=== PATIENT | male | born 1985 | race Caucasian/White ===

== ENCOUNTER 2018-11-28 16:50 | Emergency (ER) | payer OTHER ==
[~2018-11-28] VITALS: Ht 172.7 cm; Wt 74.8 kg
[2018-11-28 16:58] VITALS: BP 154/98
[2018-11-28] MEDS ORDERED: DILAUDID ONE (17:07)
[2018-11-28] MEDS ORDERED: ZOFRAN ONE (17:07)
--- NOTE | 2018-11-28 17:10 | NUR ---
UPDATE DR. DONOHUE AT BEDSIDE AND EXAM COMPLETE. PATIENT REMOVED FROM BACKBOARD.
[2018-11-28] MEDS ORDERED: DILAUDID IV STA (17:14)
[2018-11-28] MEDS ORDERED: ZOFRAN IV STA (17:14)
[2018-11-28 17:15] VITALS: BP 138/98
--- NOTE | 2018-11-28 17:30 | NUR ---
CT PATIENT TO CT VIA STRETCHER.
[2018-11-28 17:44] LABS: BASOPHIL # 0.1 10^3/uL (0.0-0.1); BASOPHIL % 0.6 % (0.0-0.2); EOSINOPHIL % 0.3 % (0.0-5.0); HEMOGLOBIN 16.6 g/dL (13.9-16.3); LYMPHOCYTES # 2.2 10^3/uL (1.0-4.8); LYMPHOCYTES % 18.5 % (24.0-44.0); MEAN CELL HGB 29.5 pg (26-34); MEAN CORP VOLUME 84.3 fL (78-100); MEAN PLATELET VOLUME 9.2 fL (7.8-11.0); MONOCYTES % 8.2 % (5.0-12.0); NEUTROPHIL # 8.5 10^3/uL (1.8-7.7); NEUTROPHILS % 72.2 % (41.0-85.0); RED CELL DISTRIBUTION WIDTH 12.9 % (11.5-14.5); WHITE BLOOD CELL 11.8 10^3/uL (4.5-11.0)
--- NOTE | 2018-11-28 17:54 | PCM.EKG ---
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
[2018-11-28 18:03] LABS: CALCIUM 9.2 mg/dL (8.4-10.5); CARBON DIOXIDE 20.5 mmol/L (20.0-32)
--- NOTE | 2018-11-28 18:13 | NUR ---
UPDATE DR. DONOHUE ON THE PHONE WITH [facility].
--- NOTE | 2018-11-28 18:14 | NUR ---
CT PATIENT RETURNED FROM CT VIA STRETCHER.
[2018-11-28 18:15] VITALS: BP 129/85
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
[2018-11-28 18:30] VITALS: BP 135/83
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
--- NOTE | 2018-11-28 18:40 | NUR ---
UPDATE CT RESULTS ARE BACK AND DR. DONOHUE STATES THAT THEY ARE NORMAL SO FAR AND TO HOLD TRANSFER AT THIS TIME. CALLED AND NOTIFIED [employer] TO HOLD ON TRANSFER.
--- NOTE | 2018-11-28 18:40 | NUR ---
C BRYAN WILL REMOVED BY DR. DONOHUE
[2018-11-28 18:45] VITALS: BP 136/95
[2018-11-28] MEDS ORDERED: ADACEL VIAL IM ONE ×2 (19:42→20:00)
== END 2018-11-28 20:15 | disposition home or self-care (01) ==
LOC: ER 16:50
DX: S01.01XA Laceration without foreign body of scalp, initial encounter (principal); S51.012A Laceration without foreign body of left elbow, initial encounter; V03.90XA Pedestrian on foot injured in collision with car, pick-up truck or van, unspecified whether traffic or nontraffic accident, initial encounter; Z79.899 Other long term (current) drug therapy; Y93.02 Activity, running; Y92.488 Other paved roadways as the place of occurrence of the external cause; Y99.8 Other external cause status
CPT/HCPCS: 12006; 36415; 70450; 71260; 72125; 72128; 72131; 73030; 74177; 80053; 85025; 85610; 85730; 90471; 90715; 93005; 96374; 96375; 99285; J1170; J2405; Q9965

== ENCOUNTER 2018-12-15 15:38 | Emergency (ER) | payer OTHER ==
[~2018-12-15] VITALS: Ht 172.7 cm; Wt 76.2 kg
[2018-12-15 16:12] VITALS: BP 123/67
[2018-12-15 16:13] VITALS: BP 123/67
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
[2018-12-15] MEDS ORDERED: XYLOCAINE 1%-EPI 1:100,000 ONE (16:43)
--- NOTE | 2018-12-15 17:02 | DIREP ---
PROCEDURE:XRAY ELBOW 2VWS-LT COMPARISON:None. INDICATIONS:fb proxima leftl forearm FINDINGS: BONES:Normal. JOINTS:Normal. No displaced anterior or posterior fat pads. SOFT TISSUES:6 mm triangular radiodensity, isodense with adjacent bone, immediately dorsal to the proximal ulna 6 cm distal to the olecranon process. OTHER:Normal. CONCLUSION:6 mm foreign body dorsal to the proximal humerus. Dictated by: Majo Min MD on 12/15/2018 at 04:59 PM
[2018-12-15 17:20] VITALS: BP 101/66
== END 2018-12-15 17:16 | disposition home or self-care (01) ==
LOC: ER 15:38
DX: S41.122A Laceration with foreign body of left upper arm, initial encounter (principal); V49.9XXA Car occupant (driver) (passenger) injured in unspecified traffic accident, initial encounter; Y93.89 Activity, other specified; Y92.488 Other paved roadways as the place of occurrence of the external cause; Y99.8 Other external cause status
CPT/HCPCS: 12031; 99284; 73070-LT